=== PATIENT | male | born 1940 | race Caucasian/White ===

== ENCOUNTER → 2020-10-16 | Outpatient (CLI) | payer MEDICARE ==
[~2020-10-16] MED LIST: ASPI-1012 PO; CARV12.511 PO; CLOP75TA14 PO; GABA-529 PO; GEMF600T89 PO; HYDR25TA PO; INSLAN SQ; ISOS30TA92 PO; LOSA25TA41 PO; METF-444 PO; MULT-1258 PO; NITR0.4T SL; NOVOLOG SQ; ROSU20TA23 PO; TAMS0.4C32 PO
== END | disposition home or self-care (01) ==
LOC: OIH 09:58
PROVIDERS: ATTEND Internal Medicine
DX: J20.9 Acute bronchitis, unspecified (principal); Z95.1 Presence of aortocoronary bypass graft
CPT/HCPCS: 71046

== ENCOUNTER → 2022-04-16 | Outpatient (CLI) | payer MEDICARE | END | disposition home or self-care (01) | LOC: RAH 13:23 | PROVIDERS: ATTEND Internal Medicine | DX: G45.9 Transient cerebral ischemic attack, unspecified (principal) | CPT/HCPCS: 70450 ==

== ENCOUNTER 2022-11-06 17:27 | Inpatient (IN) | payer MEDICARE ==
[~2022-11-06] VITALS: Ht 180.3 cm; Wt 97.7 kg
[~2022-11-06 17:27] MED LIST changes: +CLOP-31 PO; -CLOP75TA14 PO
[2022-11-06] MEDS ORDERED: ASPIRIN 81MG CHEW TAB PO ONE (18:00)
[2022-11-06 18:05] LABS: BASOPHILS % (AUTO) 0.1 % (0.0-5.0); EOSINOPHILS % (AUTO) 0.1 % (0.0-8.0); HEMATOCRIT 38.9 % (42-54); LYMPHOCYTES % (AUTO) 21.9 % (21.0-51.0); MEAN CORPUSCULAR HEMOGLOBIN 32.1 pg (27.0-33.0); MEAN CORPUSCULAR HGB CONC 34.2 g/dL (32.0-36.0); MONOCYTES % (AUTO) 11.1 % (3.0-13.0); NEUTROPHILS % (AUTO) 66.4 % (40.0-77.0); PLATELET COUNT (AUTO) 120 K/uL (130-400); RED BLOOD CELL COUNT(AUTO) 4.14 MIL/uL (4.50-6.20); RED CELL DISTRIBUTION WIDTH 13.5 % (11.0-15.5); WHITE BLOOD COUNT (AUTO) 9.2 K/uL (4.8-10.8)
[2022-11-06 18:13] LABS: CREATININE 1.6 mg/dL (0.5-1.5); POTASSIUM 4.7 mmol/L (3.5-5.1)
[2022-11-06 18:20] LABS: APPEARANCE,URINE CLEAR (CLEAR); BILIRUBIN,URINE NEGATIVE (NEGATIVE); COLOR,URINE YELLOW (YELLOW); GLUCOSE, URINE (UA) >=1000 mg/dL (NEGATIVE); KETONES,URINE NEGATIVE (NEGATIVE); LEUKOCYTE ESTERASE ,URINE NEGATIVE Leu/uL (NEGATIVE); NITRATE,URINE NEGATIVE (NEGATIVE); OCCULT BLOOD,URINE NEGATIVE (NEGATIVE); PROTEIN,URINE NEGATIVE (NEGATIVE); UROBILINOGEN,URINE 0.2 mg/dL (0.2-1.0)
[2022-11-06 18:22] LABS: ALBUMIN 3.6 g/dL (3.5-5.0); TOTAL PROTEIN, SERUM 6.6 g/dL (6.0-8.3)
[2022-11-06 18:31] LABS: RBC,URINE 0-1 /HPF (0-1); WBC,URINE 0-1 /HPF (0-1)
[2022-11-06] MEDS ORDERED: ACETAMINOPHEN 500 MG TABLET PO ONE (19:30)
[2022-11-06] MEDS ORDERED: NITROGLYCERIN 0.4 MG SL TAB SL PRN (19:30)
[2022-11-06] MEDS ORDERED: ONDANSETRON 4MG INJ IVP PRN (19:30)
[2022-11-06] MEDS ORDERED: ATOR40TA71 PO (21:42)
[2022-11-06] MEDS ORDERED: PANT40TA54 PO (21:42)
[2022-11-06] MEDS ORDERED: RANO500T2 PO (21:42)
[2022-11-06] MEDS ORDERED: ISOS20TA85 PO (21:42)
[2022-11-06] MEDS ORDERED: NITR0.3T11 SL (21:42)
[2022-11-06] MEDS ORDERED: METO-408 PO (21:42)
[2022-11-06] MEDS ORDERED: ASPI-1012 PO (21:42)
[2022-11-06] MEDS ORDERED: INSLAN SQ (21:42)
[2022-11-06] MEDS ORDERED: TAMS-1 PO (21:42)
[2022-11-06] MEDS ORDERED: MULT-1367 PO (21:42)
[2022-11-06] MEDS ORDERED: APIX5TAB PO (21:42)
[2022-11-06] MEDS ORDERED: MIDO2.5T PO (21:42)
[2022-11-06] MEDS ORDERED: CLOP75TA32 PO (21:42)
[2022-11-06] MEDS ORDERED: GABA600T10 PO (21:42)
[2022-11-06] MEDS ORDERED: INSU100V39 SQ (21:42)
[2022-11-06 23:25] VITALS: BP 150/75
[2022-11-06] MEDS ORDERED: PHARMACY COMMUNICATION MISC SCH ×2 (23:45)
[2022-11-06] MEDS ORDERED: DOCU-116 PO (23:47)
[2022-11-06] MEDS ORDERED: RIVA1PAT12 TD (23:48)
[2022-11-07] MEDS ORDERED: MIDODRINE HCL 5 MG TABLET PO PRN
[2022-11-07] MEDS ORDERED: INSULIN LISPRO 100 UNIT/ML 3ML SQ PRN
[2022-11-07] MEDS ORDERED: NON-FORMULARY MEDICATION 1 EACH (Nitroglycerin 0.3 MG) SL PRN
[2022-11-07] MEDS ORDERED: DEXTROSE 50%-WATER 50 ML DISP.SYRIN IV PRN (01:00)
[2022-11-07] MEDS ORDERED: GLUCAGON 1MG KIT 1 MG ML IM PRN (01:00)
[2022-11-07 04:26] VITALS: BP 128/62
[2022-11-07] MEDS: INSULIN LISPRO 100 UNIT/ML 3ML SQ SCH ×5 (05:41→20:25)
[2022-11-07 08:36] VITALS: BP 175/67
[2022-11-07 08:38] VITALS: BP 120/54
[2022-11-07] MEDS ORDERED: NITROGLYCERIN 0.4 MG SL TAB SL PRN (09:00)
[2022-11-07] MEDS ORDERED: ATORVASTATIN 40 MG TABLET PO SCH (09:00)
[2022-11-07] MEDS: METOPROLOL SUCCINATE 25 MG TAB.SR.24H PO SCH ×2 (09:03→20:14)
[2022-11-07] MEDS: PANTOPRAZOLE 40 MG TAB DR PO SCH (09:03)
[2022-11-07] MEDS: APIXABAN 5 MG TABLET PO SCH ×2 (09:04→20:13)
[2022-11-07] MEDS: MULTIVITAMIN TABLET PO SCH (09:04)
[2022-11-07] MEDS: ISOSORBIDE MONONITRATE 20 MG TABLET PO SCH (09:04)
[2022-11-07] MEDS: RANOLAZINE 500 MG TAB.SR.12H PO SCH ×2 (09:05→20:13)
[2022-11-07] MEDS: CLOPIDOGREL 75MG TAB PO SCH (09:05)
[2022-11-07 11:48] VITALS: BP 100/43
[2022-11-07] MEDS: MORPHINE 4 MG SYG IVP PRN ×2 (12:51→20:14)
[2022-11-07 17:25] VITALS: BP 119/53
[2022-11-07 20:00] VITALS: BP 142/65
[2022-11-07] MEDS: TAMSULOSIN HCL 0.4 MG CAP.ER.24H PO SCH (20:13)
[2022-11-07] MEDS: GABAPENTIN 300 MG CAPSULE PO SCH (20:13)
[2022-11-07] MEDS: ATORVASTATIN 40 MG TABLET PO SCH (20:14)
[2022-11-07] MEDS: DOCUSATE SODIUM 100 MG CAP PO SCH (20:14)
[2022-11-07] MEDS: INSULIN GLARGINE 100 UNITS/ML 10 ML VIAL SQ SCH (20:25)
[2022-11-07] MEDS: RIVASTIGMINE 9.5 MG/24 HR TD SCH (20:26)
[2022-11-07] MEDS ORDERED: INSULIN GLARGINE 100 UNITS/ML 10 ML VIAL SQ SCH (21:00)
[2022-11-08] VITALS: BP 136/66
[2022-11-08 04:01] VITALS: BP 116/51
[2022-11-08] MEDS: INSULIN LISPRO 100 UNIT/ML 3ML SQ SCH ×4 (06:40→21:14)
[2022-11-08 08:31] VITALS: BP 102/59
[2022-11-08] MEDS: MULTIVITAMIN TABLET PO SCH (08:39)
[2022-11-08] MEDS: RANOLAZINE 500 MG TAB.SR.12H PO SCH ×2 (08:39→21:00)
[2022-11-08] MEDS: APIXABAN 5 MG TABLET PO SCH ×2 (08:39→21:00)
[2022-11-08] MEDS: METOPROLOL SUCCINATE 25 MG TAB.SR.24H PO SCH ×2 (08:39→21:00)
[2022-11-08] MEDS: ISOSORBIDE MONONITRATE 20 MG TABLET PO SCH (08:39)
[2022-11-08] MEDS: CLOPIDOGREL 75MG TAB PO SCH (08:40)
[2022-11-08] MEDS: PANTOPRAZOLE 40 MG TAB DR PO SCH (08:40)
[2022-11-08] MEDS ORDERED: ACETAMINOPHEN 325 MG TAB PO PRN (10:30)
[2022-11-08 12:49] VITALS: BP 115/55
[2022-11-08 16:00] VITALS: BP 128/70
[2022-11-08 20:00] VITALS: BP 151/53
[2022-11-08] MEDS: GABAPENTIN 300 MG CAPSULE PO SCH (21:00)
[2022-11-08] MEDS: DOCUSATE SODIUM 100 MG CAP PO SCH (21:00)
[2022-11-08] MEDS: RIVASTIGMINE 9.5 MG/24 HR TD SCH (21:00)
[2022-11-08] MEDS: TAMSULOSIN HCL 0.4 MG CAP.ER.24H PO SCH (21:00)
[2022-11-08] MEDS: ATORVASTATIN 40 MG TABLET PO SCH (21:00)
[2022-11-08] MEDS: INSULIN GLARGINE 100 UNITS/ML 10 ML VIAL SQ SCH (21:13)
[2022-11-09] VITALS: BP 125/58
[2022-11-09 04:00] VITALS: BP 125/68
[2022-11-09] MEDS: INSULIN LISPRO 100 UNIT/ML 3ML SQ SCH ×5 (06:51→20:20)
[2022-11-09] MEDS: ISOSORBIDE MONONITRATE 20 MG TABLET PO SCH (08:36)
[2022-11-09] MEDS: METOPROLOL SUCCINATE 25 MG TAB.SR.24H PO SCH ×2 (08:37→20:10)
[2022-11-09] MEDS: APIXABAN 5 MG TABLET PO SCH ×2 (08:37→20:09)
[2022-11-09] MEDS: PANTOPRAZOLE 40 MG TAB DR PO SCH (08:37)
[2022-11-09] MEDS: CLOPIDOGREL 75MG TAB PO SCH (08:37)
[2022-11-09] MEDS: RANOLAZINE 500 MG TAB.SR.12H PO SCH ×2 (08:37→20:10)
[2022-11-09] MEDS: MULTIVITAMIN TABLET PO SCH (08:37)
[2022-11-09 08:43] VITALS: BP 94/57
[2022-11-09 11:28] VITALS: BP 110/57
[2022-11-09 16:47] VITALS: BP 170/76
[2022-11-09] MEDS ORDERED: TAMSULOSIN HCL 0.4 MG CAP.ER.24H PO SCH (19:00)
[2022-11-09 19:54] VITALS: BP 157/66
[2022-11-09] MEDS: ATORVASTATIN 40 MG TABLET PO SCH (20:09)
[2022-11-09] MEDS: GABAPENTIN 300 MG CAPSULE PO SCH (20:09)
[2022-11-09] MEDS: DOCUSATE SODIUM 100 MG CAP PO SCH (20:09)
[2022-11-09] MEDS: INSULIN GLARGINE 100 UNITS/ML 10 ML VIAL SQ SCH (20:20)
[2022-11-09] MEDS: RIVASTIGMINE 9.5 MG/24 HR TD SCH (20:20)
[2022-11-10 00:24] VITALS: BP 129/57
[2022-11-10 04:18] VITALS: BP 136/61
[2022-11-10] MEDS: INSULIN LISPRO 100 UNIT/ML 3ML SQ SCH (06:38)
[2022-11-10 08:00] VITALS: BP 124/62
[2022-11-10] MEDS: MULTIVITAMIN TABLET PO SCH (08:59)
[2022-11-10] MEDS: PANTOPRAZOLE 40 MG TAB DR PO SCH (08:59)
[2022-11-10] MEDS: RANOLAZINE 500 MG TAB.SR.12H PO SCH (08:59)
[2022-11-10] MEDS: ISOSORBIDE MONONITRATE 20 MG TABLET PO SCH (08:59)
[2022-11-10] MEDS: METOPROLOL SUCCINATE 25 MG TAB.SR.24H PO SCH (08:59)
[2022-11-10] MEDS: CLOPIDOGREL 75MG TAB PO SCH (08:59)
[2022-11-10] MEDS: APIXABAN 5 MG TABLET PO SCH (09:00)
== END 2022-11-10 11:35 | disposition home or self-care (01) | DRG 303 ==
LOC: EDH 17:27 → EDHIP 19:13 → 3DH 23:19
PROVIDERS: ADMIT Internal Medicine; ATTEND Internal Medicine
DX: I25.110 Atherosclerotic heart disease of native coronary artery with unstable angina pectoris (principal); I12.9 Hypertensive chronic kidney disease with stage 1 through stage 4 chronic kidney disease, or unspecified chronic kidney disease; N18.9 Chronic kidney disease, unspecified; E11.22 Type 2 diabetes mellitus with diabetic chronic kidney disease; E78.00 Pure hypercholesterolemia, unspecified; N40.0 Benign prostatic hyperplasia without lower urinary tract symptoms; Z91.199 Patient's noncompliance with other medical treatment and regimen due to unspecified reason; Z95.1 Presence of aortocoronary bypass graft; Z95.5 Presence of coronary angioplasty implant and graft
CPT/HCPCS: 36415; 71045; 80053; 81001; 82550; 82948; 83874; 84484; 85025; 93005; G0378; J1815; J2270; J2405

== ENCOUNTER 2023-04-30 09:51 | Emergency (ER) | payer MEDICARE ==
[~2023-04-30] VITALS: Ht 180.3 cm; Wt 95.3 kg
[~2023-04-30 09:51] MED LIST changes: +APIX5TAB PO; +ATOR40TA71 PO; -CARV12.511 PO; -CLOP-31 PO; +CLOP75TA32 PO; +DOCU-116 PO; -GABA-529 PO; +GABA600T10 PO; -GEMF600T89 PO; -HYDR25TA PO; -INSLAN SQ; +INSU100V45 SQ; +ISOS20TA85 PO; -ISOS30TA92 PO; -LOSA25TA41 PO; -METF-444 PO; +MIDO2.5T PO; -MULT-1258 PO; +MULT-1367 PO; +NITR0.3T11 SL; -NITR0.4T SL; -NOVOLOG SQ; +PANT40TA54 PO; +RANO500T2 PO; +RIVA1PAT12 TD; -ROSU20TA23 PO; -TAMS0.4C32 PO
[2023-04-30 10:35] LABS: HEMATOCRIT 39.4 % (42-54); MEAN CORPUSCULAR HEMOGLOBIN 33.3 pg (27.0-33.0); MEAN CORPUSCULAR HGB CONC 34.3 g/dL (32.0-36.0); MEAN CORPUSCULAR VOLUME 97.3 fL (79-99); RED BLOOD CELL COUNT(AUTO) 4.05 MIL/uL (4.50-6.20); RED CELL DISTRIBUTION WIDTH 12.9 % (11.0-15.5); WHITE BLOOD COUNT (AUTO) 9.6 K/uL (4.8-10.8)
[2023-04-30 10:49] LABS: ALBUMIN 3.3 g/dL (3.5-5.0); CREATININE 1.5 mg/dL (0.5-1.5); POTASSIUM 4.9 mmol/L (3.5-5.1)
[2023-04-30] MEDS ORDERED: ASPIRIN 325MG TAB ONE (10:52)
[2023-04-30] MEDS ORDERED: NITROGLYCERIN 0.4 MG SL TAB SL ONE (10:52)
[2023-04-30] MEDS: NITROGLYCERIN 0.4 MG SL TAB SL PRN ×2 (10:55→12:08)
[2023-04-30] MEDS ORDERED: ASPIRIN 325MG TAB PO ONE (11:00)
[2023-04-30 11:08] LABS: APPEARANCE,URINE CLOUDY (CLEAR); BILIRUBIN,URINE NEGATIVE (NEGATIVE); COLOR,URINE YELLOW (YELLOW); GLUCOSE, URINE (UA) >=1000 mg/dL (NEGATIVE); KETONES,URINE 5 mg/dL (NEGATIVE); LEUKOCYTE ESTERASE ,URINE 500 Leu/uL (NEGATIVE); NITRATE,URINE NEGATIVE (NEGATIVE); OCCULT BLOOD,URINE SMALL (NEGATIVE); PROTEIN,URINE 30 mg/dL (NEGATIVE); UROBILINOGEN,URINE 0.2 mg/dL (0.2-1.0)
[2023-04-30 11:13] LABS: ADD UA MICROSCOPIC YES
[2023-04-30] MEDS ORDERED: CEFTRIAXONE 1G VIAL ONE (11:16)
[2023-04-30 11:17] LABS: BACTERIA,URINE MOD /HPF (None Seen); MUCUS,URINE RARE LPF (None Seen); WBC CLUMP FEW /HPF (0-1); WBC,URINE TNTC /HPF (0-1)
[2023-04-30] MEDS ORDERED: CEFTRIAXONE 1G VIAL IVPB ONE (11:30)
[2023-04-30] MEDS ORDERED: 0.9%NACL 1000ML 1,000 ML IV ONE (11:30)
[2023-04-30] MEDS ORDERED: LORAZEPAM 2 MG/ML 1 ML VIAL ONE (13:27)
[2023-04-30] MEDS ORDERED: MORPHINE 4 MG SYG IVP ONE (13:30)
[2023-04-30] MEDS ORDERED: ONDANSETRON 4MG INJ IVP ONE (13:30)
[2023-04-30] MEDS ORDERED: LORAZEPAM 2 MG/ML 1 ML VIAL IVP ONE (14:00)
[2023-04-30] MEDS ORDERED: METOPROLOL TARTRATE 1 MG/ML 5ML VIAL IV ONE ×3 (15:44→18:30)
[2023-04-30 21:10] VITALS: BP 154/79; PULSE 86; RESP 20; O2SAT 99
[2023-05-03] MEDS ORDERED: AEC81 PO (18:03)
[2023-05-03] MEDS ORDERED: GABA300S3 PO (18:04)
[2023-05-03] MEDS ORDERED: ATOR40TA71 PO (18:12)
[2023-05-03] MEDS ORDERED: TAMS-1 PO (18:16)
[2023-05-03] MEDS ORDERED: METO50TA18 PO (18:16)
[2023-05-03] MEDS ORDERED: INSLAN SQ (21:42)
== END 2023-04-30 21:13 | disposition short-term general hospital (02) ==
LOC: EDH 09:51
DX: I20.89 Other forms of angina pectoris (principal); I10 Essential (primary) hypertension; E11.9 Type 2 diabetes mellitus without complications; E78.00 Pure hypercholesterolemia, unspecified; I25.2 Old myocardial infarction; Z79.899 Other long term (current) drug therapy; Z79.82 Long term (current) use of aspirin; Z79.01 Long term (current) use of anticoagulants; Z95.1 Presence of aortocoronary bypass graft; Z95.5 Presence of coronary angioplasty implant and graft; Z95.810 Presence of automatic (implantable) cardiac defibrillator; Z98.890 Other specified postprocedural states
CPT/HCPCS: 99285; 72141; 96365; 96375; 82550; 84484 ×2; 80053; 83690; 85027; 87077; 87088; 87186; 83605; 81001; 36415; 72148; 72146; 96376; 93005 ×3; J3490 ×2; J0696; J2060

== ENCOUNTER → 2024-03-03 | Outpatient (CLI) | payer MEDICARE ==
[~2024-03-03] MED LIST changes: +AEC81 PO; -APIX5TAB PO; -ASPI-1012 PO; +CEPH500C2 PO; +GABA300S3 PO; -GABA600T10 PO; +INSLAN SQ; +METO50TA18 PO; -RIVA1PAT12 TD; +TAMS-1 PO
== END | disposition home or self-care (01) ==
LOC: RAH 15:43
PROVIDERS: ATTEND Internal Medicine
DX: N50.3 Cyst of epididymis (principal); N50.811 Right testicular pain; N45.1 Epididymitis
CPT/HCPCS: 76870

== ENCOUNTER → 2024-10-03 | Outpatient (CLI) | payer MEDICARE ==
[~2024-10-03] MED LIST changes: +ALBUHFA IH; +APIX5TAB PO; -DOCU-116 PO; +GABA-529 PO; -GABA300S3 PO; +INSU100C14 SQ; -INSU100V45 SQ; +ISOS-58 PO; -ISOS20TA85 PO; -MIDO2.5T PO; +MIDO2.5T4 PO; -NITR0.3T11 SL; +NITR0.4T50 SL; +VITA1CAP85 PO
--- NOTE | 2024-10-03 13:02 | HMCIMG ---
KNEE 3VWS RT HISTORY: Contusion COMPARISON: None TECHNIQUE: Images of right knee were obtained. FINDINGS: Vascular calcifications are seen. Degenerative changes are seen. There are calcifications at the insertion site of the thoracic tendon and patellar tendon consistent with enthesopathy. There is no acute displaced fracture or dislocation. Degenerative changes are seen. IMPRESSION: 1. Findings as described above.
== END | disposition home or self-care (01) ==
LOC: RAH 11:33
PROVIDERS: ATTEND Internal Medicine
DX: S80.01XA Contusion of right knee, initial encounter (principal); M17.11 Unilateral primary osteoarthritis, right knee; M25.861 Other specified joint disorders, right knee; X58.XXXA Exposure to other specified factors, initial encounter; Y93.89 Activity, other specified; Y92.89 Other specified places as the place of occurrence of the external cause; Y99.8 Other external cause status
CPT/HCPCS: 73562

== ENCOUNTER → 2025-01-23 | Outpatient (CLI) | payer MEDICARE ==
[~2025-01-23] MED LIST changes: -TAMS-1 PO; +TAMS-55 PO
--- NOTE | 2025-01-23 17:16 | HMCIMG ---
EXAM: CR left Knee, 3 View. CLINICAL HISTORY: PAIN IN LEFT KNEE COMPARISON: None provided. FINDINGS: BONES: No acute fracture or aggressive appearing osseous lesion. JOINTS: The joint spaces show no significant degenerative disease. There is no joint effusion appreciated. SOFT TISSUES: The soft tissues are unremarkable.Small to moderate anterior superior patellar spur. Scattered arterial calcific atherosclerosis most pronounced involving the upper calf vessels. IMPRESSION: 1. No acute osseous injury. 2. Small to moderate anterior superior patellar spur. 3. Atherosclerotic calcifications in the calf vessels. /[place]
--- NOTE | 2025-01-23 17:18 | HMCIMG ---
EXAM: CR right Finger, 3 View. CLINICAL HISTORY: PAIN IN RIGHT FINGER, OTHER SPECIFIED SOFT TISSUE DISORDERS COMPARISON: None provided. FINDINGS: BONES: No acute fracture or aggressive appearing osseous lesion. JOINTS: No dislocation. 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 There is dorsal soft tissue swelling at the interphalangeal joint of the first digit. There are a few small ossifications versus radiopaque foreign bodies within this area measuring up to 3 mm in maximum dimension. There is marked arterial calcific atherosclerosis. IMPRESSION: 1. No acute osseous injury. 2. Soft tissue swelling at the first digit interphalangeal joint with small calcifications versus foreign bodies. 3. Chronic ossification adjacent to proximal phalanx. 4. Marked arterial calcific atherosclerosis. /[place]
== END | disposition home or self-care (01) ==
LOC: RAH 14:44
PROVIDERS: ATTEND Internal Medicine
DX: I70.202 Unspecified atherosclerosis of native arteries of extremities, left leg (principal); M79.89 Other specified soft tissue disorders; M79.644 Pain in right finger(s); M76.892 Other specified enthesopathies of left lower limb, excluding foot; M18.11 Unilateral primary osteoarthritis of first carpometacarpal joint, right hand
CPT/HCPCS: 73140; 73562